=== PATIENT | female | born 1960 | race African-American/Black ===

== ENCOUNTER 2019-01-22 21:22 | Emergency (ER) | payer OTHER ==
[~2019-01-22] VITALS: Ht 180.3 cm; Wt 81.6 kg
--- NOTE | 2019-01-22 21:37 | NUR ---
ED Nurse Note: Pt ambulated to ED from home c/o R nasal bleeding, dizziness and headache 11/13 since 4pm. Pt is A&Ox4, VSS. Pt also requesting refill for BP medication.
[2019-01-22 21:38] VITALS: BP 155/109
--- NOTE | 2019-01-22 21:58 | Emergency Room Report ---
History of Present Illness General Chief Complaint: Nosebleed Source: Patient Present Illness HPI Is a 58-year-old female with a history of high blood pressure. She ran out of her blood pressure medication for about a month now. Today she presents with chief complaint of nosebleed. Been intermittently for the last day. Mostly in the right side. She found a leftover Norvasc and took it. Denies any fever chills but complained of some dizziness because of the blood pressure. No nausea no vomiting. No focal deficit. Denies any other complaint. Allergies: Coded Allergies: No Known Allergies (Unverified , 01/23/14) Patient History Past Medical History: see triage record, old chart reviewed, HTN Past Surgical History: none Pertinent Family History: none Social History: Denies: smoking Now: No Immunizations: other Reviewed Nursing Documentation: PMH: Agreed; PSxH: Agreed Nursing Documentation-PMH Past Medical History: No History, Except For Hx Hypertension: Yes Hx Gastrointestinal Problems: No - Cholecystectomy & Appendectomy in 2013 Hx Neurological Problems: No - Chronic knee pain & back pain Review of Systems Eye: Denies: eye pain, blurred vision ENT: Denies: ear pain, nose congestion, throat swelling Respiratory: Denies: cough, shortness of breath Cardiovascular: Denies: chest pain, palpitations Gastrointestinal: Denies: abdominal pain, diarrhea, nausea, vomiting Musculoskeletal: Denies: back pain, joint pain Skin: Denies: rash Neurological: Denies: headache, numbness Endocrine: Denies: increased thirst, increased urine Hematologic/Lymphatic: Denies: easy bruising All Other Systems: negative except mentioned in HPI Physical Exam Vital Signs Date Time Temp Pulse Resp B/P (MAP) Pulse Ox O2 Delivery O2 Flow Rate FiO2 01/22/19 21:27 97.9 90 18 155/109 (124) 93 Room Air Vitals with high blood pressure Sp02 EP Interpretation: reviewed, normal General Appearance: well appearing, no apparent distress, alert Head: normocephalic, atraumatic Eyes: bilateral eye PERRL, bilateral eye EOMI ENT: hearing grossly normal, normal pharynx, other - Anterior epistaxis in the right nares. Oozing blood. Neck: full range of motion, supple, no meningismus Respiratory: chest non-tender, lungs clear, normal breath sounds Cardiovascular #1: regular rate, rhythm, no murmur Gastrointestinal: normal bowel sounds, non tender, no mass, no organomegaly, no bruit, non-distended Musculoskeletal: back normal, gait/station normal, normal range of motion Psychiatric: mood/affect normal Procedures Additional Procedure Procedure Narrative Procedure: Epistaxis control Indication: Epistaxis Description: Using a silver nitrate stick, I cauterized the right nares with bleeding is. No active bleeding afterward. Patient tolerated procedure without any problem. No complication. Medical Decision Making Diagnostic Impression: Primary Impression: Epistaxis Additional Impression: Hypertension Qualified Codes: I10 - Essential (primary) hypertension ER Course Patient presents with nosebleed. She also have high blood pressure. No evidence of any posterior bleeding. Bleeding stopped now. Blood pressure improved. Will discharge home. Last Vital Signs Date Time Temp Pulse Resp B/P (MAP) Pulse Ox O2 Delivery O2 Flow Rate FiO2 01/22/19 21:38 97.9 86 18 155/109 93 Room Air Status: improved Disposition: HOME, SELF-CARE Condition: Stable Scripts Amlodipine Besylate (Norvasc) 10 Mg Tablet 10 MG ORAL DAILY, #90 TAB Prov: Brock Victor MD 01/22/19 Patient Instructions: Nosebleed, [id number] Additional Instructions: Follow-up with your doctor in 7 days. Take your blood pressure medication. Return if symptoms worsen. Brock Victor MD Jan 22, 2019 21:58
[2019-01-22] MEDS ORDERED: Silver Nitrate Stick TOPIC ONE (22:00)
[2019-01-22] MEDS ORDERED: NORVASC10 MG ORAL (22:37)
--- NOTE | 2019-01-22 22:43 | NUR ---
ER DISCHARGE NOTE: Patient is cleared to be discharged per ERMD, pt is aox4, on room air, with stable vital signs. pt was given dc and prescription instructions, pt was able to verbalize understanding, pt id band removed. pt is able to ambulate with steady gait. pt took all belongings.
[2019-01-22 22:44] VITALS: BP 164/105
== END 2019-01-22 22:45 | disposition home or self-care (01) ==
LOC: EMR 22:05
DX: R04.0 Epistaxis (principal); I10 Essential (primary) hypertension; Z90.49 Acquired absence of other specified parts of digestive tract; G89.29 Other chronic pain; M25.569 Pain in unspecified knee
CPT/HCPCS: 30901; Z7502; 99282; 99283